=== PATIENT | male | born 1965 | race Caucasian/White ===

== ENCOUNTER 2017-05-03 13:00 | Outpatient (RCR) | payer OTHER | END 2017-05-05 | LOC: PT 13:00 | PROVIDERS: ATTEND Neurological Surgery | DX: M51.16 Intervertebral disc disorders with radiculopathy, lumbar region (principal) ==

== ENCOUNTER 2017-05-17 08:50 | Outpatient (RCR) | payer OTHER | END 2017-06-05 | LOC: PT 08:50 | PROVIDERS: ATTEND Neurological Surgery | DX: M51.16 Intervertebral disc disorders with radiculopathy, lumbar region (principal); M54.5 Low back pain; M53.86 Other specified dorsopathies, lumbar region; M79.605 Pain in left leg; M62.81 Muscle weakness (generalized) ==